=== PATIENT | female | born 1955 | race Caucasian/White ===

== ENCOUNTER 2022-09-15 12:08 | Emergency (ER) | payer MEDICARE, OTHER, SELFPAY ==
[2022-09-15 12:21] VITALS: BP 127/77; PULSE 74; RESP 16; TEMP 35.8; O2SAT 99; BMI 27.3
--- NOTE | 2022-09-15 12:29 | CRLHL7_ITS ---
For Patients: As a result of the Century Cures Act, medical imaging exams and procedure reports are released immediately into your electronic medical record. You may view this report before your referring provider. If you have questions, please contact your health care provider. INDICATION: FALL TECHNIQUE: CT of the head without contrast. Coronal and sagittal reformats. Bone and soft tissue algorithms. COMPARISON: No prior studies available for comparison at this institution. FINDINGS: No acute intracranial hemorrhage or extra-axial collection. No evidence of acute cortical infarction. No mass effect or midline shift. Mild generalized cerebral/cerebellar parenchymal volume loss. Mild regions of decreased attenuation within the periventricular and subcortical white matter of both cerebral hemispheres most likely reflects chronic microvascular ischemic disease and age related change in this patient. Vascular calcifications within the carotid siphons. Orbital contents are normal. No calvarial fractures. 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 Right frontal scalp hematoma. Mastoid air cells are clear. Opacification of the right posterior ethmoid air cells. The mastoid air cells are clear. Partially empty sella. IMPRESSION: No acute intracranial abnormality. Right frontal scalp hematoma. Please note that all CT scans at this facility use dose modulation, iterative reconstruction, and/or weight-based dosing when appropriate to reduce radiation dose to as low as reasonably achievable. Dictated by Kirt Snatos MD @ 09/15/2022 1:29:12 PM (Electronically Signed)
--- NOTE | 2022-09-15 13:29 | ED_ITS ---
HPI - General Adult General Chief complaint: Head Injury/Pain Stated complaint: CT scan needed of brain Time Seen by Provider: 09/15/22 12:29 Source: patient Mode of arrival: ambulatory Limitations: no limitations History of Present Illness HPI narrative: 67-year-old female coming in today after suffering head injury. Patient states that she was at home last night when she tripped over the in and fell for turner hitting her head on the door frame. She felt immediately slightly confused and then over the next several minutes was feeling better. However she woke up this morning with a headache, slight fogginess, and per her irritability. She went to the urgent care for evaluation in the center to the ER for imaging. She denies confusion at this point she just feels like she is not 100% herself. She has a mild headache which got better with Tylenol. She denies any focal neurologic deficits, no vomiting, no amnesia. Related Data Home Medications Medication Instructions Recorded Confirmed omeprazole 40 mg capsule,delayed 40 mg PO DAILY 09/15/22 09/15/22 release Allergies Allergy/AdvReac Type Severity Reaction Status Date / Time No Known Drug Allergies Allergy Verified 09/15/22 12:30 Review of Systems Status of ROS: Reports: 10 or more systems reviewed and unremarkable except as noted in History and below [facility] Medical History GERD (gastroesophageal reflux disease) Social History Smoking Status: Never smoker Do you use any of these nicotine containing products: None How often do you have a drink containing alcohol: never AUDIT-C Alcohol total score: 0 Non-prescribed substance use: denies use Exam Narrative: Exam Narrative: Well-nourished well-developed patient in no acute distress. Alert and oriented. Answers questions appropriately. Mood and affect are appropriate. Thoughts are goal oriented and rational. No tangential or magical thinking noted. Patient speaks in full sentences without needing to catch their breath. GCS is 15. HEENT: Normocephalic.. Patient has an abrasion to the anterior right forehead with some surrounding swelling. No crepitus is appreciated. Pupils are equally round reactive to light. Extraocular muscles are intact. Conjunctivae are moist without any icterus noted. Moist mucous membranes. Posterior pharynx is normal. Neck is soft without any lymphadenopathy or thyromegaly. No masses are appreciated. Speech is not slurred or pressured. No trauma to the inside of the mouth. Skin: Well perfused without any obvious rashes. Strength is 5/5 of the upper and lower extremities. Cranial nerves 3-12 are normal. There is no nystagmus either horizontally or vertically. Gait is normal. Const: Vital Signs, click to edit/add: Vital Signs - 24 hr 09/15/22 12:21 Temperature 96.4 F L Pulse Rate [Right Pulse Oximeter] 74 Respiratory Rate 16 Blood Pressure [Ri ght Upper Arm] 127/77 Pulse Oximetry 99 Oxygen Delivery Me thod Room Air Course Course Hospital Course: Head CT was done, read by me, did not show any acute intracranial abnormality. Vital Signs Vital signs: Initial Vital Signs Temperature 96.4 F L 09/15/22 12:21 Temperature Source Temporal Artery Scan 09/15/22 12:21 Pulse Rate 74 09/15/22 12:21 Pulse Rhythm 09/15/22 12:21 Respiratory Rate 16 09/15/22 12:21 Blood Pressure 127/77 09/15/22 12:21 Blood Pressure Mean 93 09/15/22 12:21 Blood Pressure Position Sitting 09/15/22 12:21 Pulse Oximetry 99 09/15/22 12:21 Oxygen Delivery Method 09/15/22 12:21 Vital Signs Temperature 96.4 F L 09/15/22 12:21 Pulse Rate 74 09/15/22 12:21 Respiratory Rate 16 09/15/22 12:21 Blood Pressure 127/77 09/15/22 12:21 Pulse Oximetry 99 09/15/22 12:21 Oxygen Delivery Method 09/15/22 12:21 Temperature 96.4 F L 09/15/22 12:21 Pulse Rate 74 09/15/22 12:21 Respiratory Rate 16 09/15/22 12:21 Blood Pressure 127/77 09/15/22 12:21 Pulse Oximetry 99 09/15/22 12:21 Oxygen Delivery Method 09/15/22 12:21 Medical Decision Making MDM Narrative Medical decision making narrative: 67-year-old female with a closed head injury and mild concussion without cognitive deficits. We discussed symptomatic treatment, brain rest and reasons for follow-up. Patient was agreeable and had no other questions. Imaging Data CT scan - head: Attestation: I have reviewed the pertinent imaging results. Radiologist's impression: FINDINGS: No acute intracranial hemorrhage or extra-axial collection. No evidence of acute cortical infarction. No mass effect or midline shift. Mild generalized cerebral/cerebellar parenchymal volume loss. Mild regions of decreased attenuation within the periventricular and subcortical white matter of both cerebral hemispheres most likely reflects chronic microvascular ischemic disease and age related change in this patient. Vascular calcifications within the carotid siphons. Orbital contents are normal. No calvarial fractures. 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 Right frontal scalp hematoma. Mastoid air cells are clear. Opacification of the right posterior ethmoid air cells. The mastoid air cells are clear. Partially empty sella. IMPRESSION: No acute intracranial abnormality. Right frontal scalp hematoma. Discharge Plan Discharge Clinical Impression: Concussion without loss of consciousness, Closed head injury Patient Disposition: Home, Self-Care Condition: Stable Additional Instructions: Brain rest for 24 hours. Then can slowly return to regular daily activity. Okay to use Tylenol or ibuprofen as needed for headache. Sleep when you need to. Make sure to stay well hydrated. Follow-up with your primary care provider in about 1 week if you feel like you are not improving. Prescriptions: No Action omeprazole 40 mg capsule,delayed release(DR/EC) 40 mg PO DAILY Follow Up/Referrals: Provider,Not a Local [Primary Care Provider] - Stand Alone Forms: [employer] [place] Info Instructions
== END 2022-09-15 13:48 | disposition home or self-care (01) ==
PROVIDERS: Emergency Provider Family Medicine
DX: S09.90XA Unspecified injury of head, initial encounter (principal); S06.0X0A Concussion without loss of consciousness, initial encounter; W18.30XA Fall on same level, unspecified, initial encounter
CPT/HCPCS: 70450; 99284

== ENCOUNTER 2023-10-09 10:10 | Outpatient (CLI) | payer MEDICARE, OTHER, SELFPAY ==
--- NOTE | 2023-10-09 10:15 | MR_ITS ---
[facility] [address] [facility] [address] Phone:?[phone] Fax:?[phone] Referring Physician Information: Andrea Vanegas M.D. [address] [place] [id number] Phone:?[phone] Fax:?[phone] Patient:Samantha Freeman D.O.B:?[id number] Sex:?Female Phone:?[phone] [facility] MRN:?[id number] Exam Date:?10/09/2023 EXAM: MRI of the LEFT KNEE, without contrast CLINICAL INFORMATION: Female, 68 years old, with left knee pain. INDICATION: Evaluate for meniscal tear. PRIOR SURGERY: None reported. PLAIN FILMS: None available. COMPARISONS: No prior MRIs available. TECHNICAL INFORMATION: Using a 1.5T MR scanner and a localizing surface coil: sagittals: PD, PDFS coronals: PD, STIR axials: PD, T2FS SEDATION: None CONTRAST: None FINDINGS: Knee joint: Effusion: Small left knee effusion. Popliteal cyst: Small, unruptured popliteal (Marshall's) cyst. Loose bodies: None. Subcutaneous and extra-articular soft tissues: Unremarkable. Ligaments: ACL: Intact ACL anteromedial and posterolateral bundles, without sprain or tear. PCL: Intact PCL, without acute or chronic injury. MCL: Intact MCL superficial and deep layers, without injury. LCL: Intact LCL, without injury. Posterolateral corner: No posterolateral corner soft tissue injury. Popliteus, biceps femoris, iliotibial band, popliteofibular ligament and lateral gastrocnemius are intact. Posteromedial corner: No posteromedial corner soft tissue injury. Semimembranosus, pes anserine tendons and posterior oblique ligament are without injury, tendinopathy or bursitis. Extensor mechanism: Patellar tendon: Intact, without tendinopathy. Quadriceps tendon: Intact, without tendinopathy. Retinacula: Medial and lateral retinacula are intact. Fat pads: Mild edema-like signal is present throughout the knee fat pads, in keeping with synovitis. Medial compartment: Medial meniscus: Xojbohhjnzjf-oqea-[id number] radial tearing of the posterior horn/root is present over a length of 1.2 cm (sagittal PDFS series 6 images 11- 14). Meniscal extrusion measures 5 mm. No parameniscal cyst. Apical free edge and undersurface fraying/subtle tearing is also present at the posterior horn/body junction over a length of 1.1 cm (coronal STIR series 8 images 19-22). Medial femoral condyle & tibial plateau: Broad-based grade II/III chondromalacia throughout the central, weightbearing aspect of the medial compartment, with mild marginal osteophytosis. Lateral compartment: Lateral meniscus: No articular surface, meniscosynovial junction or root tear. No displacement, extrusion or parameniscal cyst. Lateral femoral condyle: No chondromalacia or osteochondral abnormality. Lateral tibial plateau: No chondromalacia or osteochondral abnormality. Patellofemoral joint: Patella: Broad-based grade III chondromalacia of the medial facet and median ridge of the patella, with mild marginal osteophytosis. Trochlea: Broad-based grade II/III chondromalacia of the mid central sulcus, with mild marginal osteophytosis. Proximal tibiofibular joint: Unremarkable, without evidence of ligament sprain injury, joint effusion or adjacent marrow edema. Bones: No stress/occult fractures or other marrow edema/pathology. IMPRESSION: 1. Complex tear of the medial meniscus, comprised of: -Pdrtckysznin-octe-rgubu radial tearing of the posterior horn/root over a length of 1.2 cm. -Apical free edge and undersurface fraying/subtle tearing at the posterior horn/body junction measures 1.1 cm. -5 mm of meniscal extrusion. 2. 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 3. Mild osteoarthritis of the medial compartment. 4. Small knee joint effusion with synovitis and a small, unruptured popliteal (Marshall's) cyst. 5. No cruciate or collateral ligament sprain/tear. 6. No lateral meniscal tear or osteochondral abnormality of the lateral compartment. BC Electronically signed on 10/09/2023 11:45:00 AM by Bruce Mejia M.D.
== END 2023-10-09 10:11 | disposition home or self-care (01) ==
PROVIDERS: PCP Physician Assistant; Visit Provider Orthopaedic Surgery
DX: M25.562 Pain in left knee (principal); S83.232A Complex tear of medial meniscus, current injury, left knee, initial encounter; S83.207A Unspecified tear of unspecified meniscus, current injury, left knee, initial encounter; M17.12 Unilateral primary osteoarthritis, left knee; M25.462 Effusion, left knee; M71.22 Synovial cyst of popliteal space [Baker], left knee
CPT/HCPCS: 73721

== ENCOUNTER 2024-08-25 13:04 | Outpatient (CLI) | payer MEDICARE, OTHER, SELFPAY | END 2024-08-25 13:05 | disposition home or self-care (01) | LOC: INJ CL 13:05 | PROVIDERS: PCP Physician Assistant; Visit Provider Family Medicine | DX: M54.16 Radiculopathy, lumbar region (principal); M51.369 Other intervertebral disc degeneration, lumbar region without mention of lumbar back pain or lower extremity pain | CPT/HCPCS: 64483; J1100; Q9966 ==

== ENCOUNTER 2024-10-02 09:01 | Outpatient (CLI) | payer MEDICARE, OTHER, SELFPAY | END 2024-10-02 09:02 | disposition home or self-care (01) | LOC: INJ CL 09:01 | PROVIDERS: PCP Physician Assistant; Visit Provider Family Medicine | DX: M54.16 Radiculopathy, lumbar region (principal); M48.062 Spinal stenosis, lumbar region with neurogenic claudication | CPT/HCPCS: 64483; J1100; Q9966 ==